=== PATIENT | female | born 1935 | race Caucasian/White ===

== ENCOUNTER 2016-10-06 09:59 | Outpatient (CLI) | payer OTHER | END 2016-10-06 10:00 | LOC: LAB 09:59 | PROVIDERS: ATTEND Physician Assistant | DX: T14.8 Other injury of unspecified body region (principal); W57.XXXA Bitten or stung by nonvenomous insect and other nonvenomous arthropods, initial encounter; Y93.9 Activity, unspecified; Y99.9 Unspecified external cause status | CPT/HCPCS: 36415; 86618; 86666; 86757 ==

== ENCOUNTER 2016-11-15 14:36 | Outpatient (CLI) | payer OTHER ==
[2016-11-15 16:28] LABS: APPEARANCE,URINE Slightly Cloudy (CLEAR); COLOR,URINE Yellow (YELLOW); OCCULT BLOOD,URINE Negative (NEGATIVE); UROBILINOGEN URINE 0.2 Eu (0.2-1.0)
== END 2016-11-15 14:40 ==
LOC: LAB 14:36
PROVIDERS: ATTEND Internal Medicine Nephrology
DX: N39.0 Urinary tract infection, site not specified (principal)
CPT/HCPCS: 81002; 87086; 87186

== ENCOUNTER 2017-01-23 15:18 | Outpatient (CLI) | payer OTHER | END 2017-01-23 15:20 | LOC: LABRHC 15:18 | PROVIDERS: ATTEND Family Medicine | DX: R30.0 Dysuria (principal) | CPT/HCPCS: 87086; 87186 ==

== ENCOUNTER 2017-04-17 12:34 | Outpatient (CLI) | payer OTHER ==
[2017-04-17 13:18] LABS: eGFR (African) > 60; eGFR (Non-African) > 60
== END 2017-04-17 12:35 ==
LOC: LAB 12:34
PROVIDERS: ATTEND Family Medicine
DX: I10 Essential (primary) hypertension (principal)
CPT/HCPCS: 36415; 80048

== ENCOUNTER 2019-01-31 09:40 | Outpatient (CLI) | payer OTHER ==
--- NOTE | 2019-02-01 06:16 | Diagnostic Imaging Report ---
LIBERTAD KIRKPATRICK [facility] [address] [facility] [address] [id number] Report Submission Date: Jan 31, 2019 10:32:47 PM CDT Patient Study Name: DANN LORD Date: Jan 31, 2019 9:55:19 AM CDT Modality Type: DX Gender: F Description: BILAT KNEES 3 VIEW : 35 Institution: [facility] Physician: LIBERTAD KIRKPATRICK Three views of the knees bilaterally Clinical history: Knee pain. Findings: Examination of the right and left knees in standing AP, lateral and sunrise views demonstrates degenerative changes in the knees with narrowing of the joint space worse laterally on the right and medially on the left. There are prominent lateral osteophytes on the right and left. There is narrowing of the patellofemoral space with osteophyte formation. There is no significant effusion and no fracture. Impression: 1. Degenerative changes. 2. No fracture. Electronically signed on Jan 31, 2019 10:32:47 PM CDT by: Ori ANDRADE
--- NOTE | 2019-02-01 06:17 | Diagnostic Imaging Report ---
LIBERTAD KIRKPATRICK [facility] [id number] [facility] [address] [place] [address]. [id number] Report Submission Date: Jan 31, 2019 10:34:56 PM CDT Patient Study Name: DANN LORD Date: Jan 31, 2019 9:55:19 AM CDT Modality Type: DX Gender: F Description: TIBIA FIBULA 2 VIEW : 35 Institution: [facility] Physician: LIBERTAD KIRKPATRICK Two views right tibia and fibula Clinical history: Turner pain. History of breast carcinoma. Findings: Examination right tibia and fibula in AP and lateral views demonstrates degenerative changes in the knee joint. There is no evident fracture and no lytic or blastic lesion. Impression: 1. Degenerative changes in the knee. 2. No fracture. Electronically signed on Jan 31, 2019 10:34:56 PM CDT by: Ori ANDRADE
== END 2019-01-31 09:43 ==
LOC: RAD 09:40
PROVIDERS: ATTEND Family Medicine
DX: M25.561 Pain in right knee (principal)
CPT/HCPCS: 73590

== ENCOUNTER 2019-07-08 14:40 | Outpatient (CLI) | payer OTHER | END 2019-07-08 14:45 | LOC: LAB 14:40 | PROVIDERS: ATTEND Internal Medicine Nephrology | DX: N39.0 Urinary tract infection, site not specified (principal) | CPT/HCPCS: 87086 ==